=== PATIENT | female | born 1980 | race Caucasian/White ===

== ENCOUNTER 2019-11-04 07:38 | Emergency (ER) | payer OTHER ==
[2019-11-04 08:23] VITALS: BP 107/42; PULSE 71; TEMP 98.2; BMI 27.4
[2019-11-04] MEDS ORDERED: IBUPROFEN 400 MG TABLET (FP) PO ONE ×2 (08:40→08:44)
--- NOTE | 2019-11-04 08:55 | PDOC ---
History of Present Illness - General Chief Complaint: Sore Throat Stated Complaint: SORETHROAT SYMPTOMPS Time Seen by Provider: 11/04/19 08:27 History Source: Patient Exam Limitations: No Limitations Past History - Travel Traveled outside of the country in the last 30 days: No Close contact w/someone who was outside of country & ill: No - Past Medical History Allergies/Adverse Reactions: Allergies Allergy/AdvReac Type Severity Reaction Status Date / Time No Known Allergies Allergy Verified 11/04/19 08:18 Home Medications: Ambulatory Orders Benzonatate [Tessalon Pearls -] 100 mg PO TID #21 capsule 11/04/19 Cefdinir [Omnicef -] 300 mg PO BID #20 capsule 11/04/19 Ibuprofen 600 mg PO Q6H #30 tablet 11/04/19 - Immunization History Immunization Up to Date: No - Psycho Social/Smoking Cessation Hx Smoking History: Never smoked Have you smoked in the past 12 months: No Information on smoking cessation initiated: No Hx Alcohol Use: No Drug/Substance Use Hx: No Substance Use Type: None Review of Systems - Review of Systems Able to Perform ROS?: Yes Comments:: 11/04/19 08:55 CONSTITUTIONAL: Present: Fever, chills, body aches Absent: diaphoresis, generalized weakness, malaise, loss of appetite HEENT: Present: rhinorrhea, nasal congestion, throat pain, ear pain. Absent: difficulty swallowing, mouth swelling, eye pain, visual Changes CARDIOVASCULAR: Absent: chest pain, loss of consciousness, palpitations, irregular heart rate, peripheral edema RESPIRATORY: Present: Cough Absent: shortness of breath, dyspnea with exertion, orthopnea, wheezing, stridor, hemoptysis GASTROINTESTINAL: Absent: abdominal pain, abdominal distension, nausea, vomiting, diarrhea, constipation, melena, hematochezia SKIN: Absent: rash, itching, pallor NEUROLOGIC: Absent: headache, focal weakness or paresthesias, dizziness, unsteady gait, seizure, mental status changes, bladder or bowel incontinence Is the patient limited Malay proficient: No *Physical Exam - Vital Signs Last Vital Signs Temp Pulse Resp BP Pulse Ox 98.2 F 71 17 107/42 L 98 11/04/19 08:18 11/04/19 08:18 11/04/19 08:18 11/04/19 08:18 11/04/19 08:18 - Physical Exam 11/04/19 08:55 GENERAL: The patient is awake, alert, and fully oriented, in no acute distress. HEAD: Normal with no signs of trauma. EYES: Pupils equal, round and reactive to light, extraocular movements intact, sclera anicteric, conjunctiva clear. HEENT: No nasal congestion or rhinorrhea. No sinus Tenderness. Mucous membranes are moist. No tonsillar erythema, exudate or edema. Uvula is midline. No TM bulging , dullness or erythema. Shotty cervical lymphadenopathy present. EXTREMITIES: Normal range of motion, no edema. NEUROLOGICAL: Normal speech, normal gait. PSYCH: Normal mood, normal affect. SKIN: Warm, Dry, normal turgor, no rashes or lesions noted. Medical Decision Making - Medical Decision Making 11/04/19 08:56 The patient is a 39-year-old female who presents to the ER today for 1 week of cough, sore throat and earache. She states she has also had chills and subjective fevers. She notes that she was seen in urgent care 3 weeks ago for similar symptoms and placed on Augmentin. She states that after finishing the course of antibiotics she began with a sore throat again the next day. She also states that her left ear is painful and she noticed fluid coming out of the ear this morning. Questionable fluid level. She has not taken any medication for her symptoms. A/P: Sore throat, earache On exam throat is nonerythematous without exudate or edema. Left tympanic membrane appears dull and retracted. No obvious rupture of the TM. Rapid strep sent. Given pain within the left ear and retraction and dull TM will consider antibiotics Reevaluate 11/04/19 10:16 Rapid strep negative Given ear exam will treat with Cefdinir as she has recently had augmentin with in the last month Recommend ibuprofin as well Patient likely has an influenza given a week of flulike symptoms and fever. Outside of treatment window. Discharge home with primary care follow-up I discussed the physical exam findings, ancillary test results and final diagnoses with the patient. I answered all of the patient's questions. The patient was satisfied with the care received and felt comfortable with the discharge plan and treatment plan. The Patient agrees to follow up with the primary care physician/specialist within 24-72 hours. Return precautions were given. 11/04/19 10:19 Delayed DC d/t prolonged time for rapid strep results. Discharge - Discharge Information Problems reviewed: Yes Clinical Impression/Diagnosis: Ear pain, left, Cough Condition: Stable Disposition: HOME - Admission No - Follow up/Referral Referrals: Valente Manzano MD [Primary Care Provider] - - Patient Discharge Instructions Patient Printed Discharge Instructions: DI for Otitis Media (Middle Ear Infection)-Child Additional Instructions: You were evaluated for your cough, ear pain and sore throat today. Your rapid strep was negative at this time. However given your ear exam I have started antibiotics. Please pickup driver the Ceftin ear and take it twice a day for 10 days. You may take the Tessalon Perles every 8 hours as needed for cough. Please take the Motrin every 6 hours as needed for pain or fever. You most likely had the flu, you may be symptomatic for another 2 to 3 days given that you have already had symptoms for a week. Please follow-up with your primary care doctor this week. Return to the ER for any new or worsening symptoms. - Post Discharge Activity Work/Back to School Note: Back to Work
== END 2019-11-04 10:26 | disposition home or self-care (01) ==
LOC: JERFT 07:38 → JER 07:38 → JERFT 10:26
DX: H66.92 Otitis media, unspecified, left ear (principal)
CPT/HCPCS: 87070; 87880; 99283-25

== ENCOUNTER 2023-07-19 04:33 | Day surgery (SDC) | payer OTHER ==
[2023-07-16 12:19] VITALS: BMI 31.1
[2023-07-19] MEDS ORDERED: LIDOCAINE HCL/PF 2% SDV 5ML VIAL ONE (11:34)
[2023-07-19] MEDS ORDERED: FENTANYL CITRATE/PF 50 MCG/ML VIAL ONE ×3 (11:34→14:14)
[2023-07-19] MEDS ORDERED: PROPOFOL 20 ML ONE (11:34)
[2023-07-19] MEDS ORDERED: MIDAZOLAM HCL 2 MG/2 ML SINGLE DOSE VIAL ONE (11:36)
[2023-07-19] MEDS ORDERED: VASOPRESSIN 20 UNITS/ML VIAL IV ONE (11:39)
[2023-07-19] MEDS ORDERED: KETOROLAC TROMETHAMINE 30 MG/1 ML VIAL ONE (12:15)
[2023-07-19] MEDS ORDERED: ONDANSETRON 4 MG/2 ML VIAL ONE (12:15)
[2023-07-19] MEDS ORDERED: DEXAMETHASONE SOD PHOSPHATE 4 MG/1 ML VIAL ONE (12:15)
[2023-07-19] MEDS ORDERED: ceFAZolin SODIUM 1 GM VIAL IVPB ONE (12:18)
[2023-07-19] MEDS ORDERED: ceFAZolin SODIUM 1 GM VIAL ONE (12:20)
[2023-07-19] MEDS ORDERED: oxyCODONE HCL 5 MG TABLET PO PRN ×2 (13:00)
[2023-07-19] MEDS ORDERED: ONDANSETRON 4 MG/2 ML VIAL IVPUSH PRN (13:00)
[2023-07-19] MEDS ORDERED: PROMETHAZINE HCL 25 MG/1 ML VIAL IVPB PRN (13:00)
[2023-07-19] MEDS ORDERED: LACTATED RINGERS SOLUTION 1,000 ML IV SCH (13:00)
[2023-07-19] MEDS ORDERED: ACETAMINOPHEN 1000 MG/100 ML BAG IVPB ONE (13:01)
[2023-07-19 17:30] VITALS: RESP 20
[2023-07-19 17:56] VITALS: BP 107/68; PULSE 86; TEMP 97.8
== END 2023-07-19 18:00 | disposition home or self-care (01) ==
LOC: JASU-SURG 04:33
PROVIDERS: ATTEND Urology
PROC: 0TSD0ZZ Reposition Urethra, Open Approach (ICD-10-PCS; 2023-07-19)
PROC: 0TSD0ZZ Reposition Urethra, Open Approach (ICD-10-PCS; principal; 2023-07-19 12:30)
DX: N39.3 Stress incontinence (female) (male) (principal); N32.81 Overactive bladder
CPT/HCPCS: 57288; C1771; 81025; 88302-TC; 94760

== ENCOUNTER 2024-10-28 09:55 | Emergency (ER) | payer OTHER ==
[2024-10-28 10:04] VITALS: BP 113/62; PULSE 96; RESP 18; TEMP 98.9; BMI 31.1
[2024-10-28] MEDS ORDERED: METHOCARBAMOL 500 MG TABLET ONE (10:34)
[2024-10-28] MEDS ORDERED: ACETAMINOPHEN 500 MG TABLET (FP) ONE (10:35)
[2024-10-28] MEDS ORDERED: KETOROLAC TROMETHAMINE 30 MG/1 ML VIAL ONE (10:35)
[2024-10-28] MEDS: KETOROLAC TROMETHAMINE 30 MG/1 ML VIAL IM ONE (10:41)
[2024-10-28] MEDS: METHOCARBAMOL 500 MG TABLET PO ONE (10:41)
[2024-10-28] MEDS: ACETAMINOPHEN 500 MG TABLET (FP) PO ONE (10:41)
== END 2024-10-28 14:09 | disposition home or self-care (01) ==
LOC: JER 09:55
PROC: 3E0233Z Introduction of Anti-inflammatory into Muscle, Percutaneous Approach (ICD-10-PCS; principal; 2024-10-28)
DX: M54.6 Pain in thoracic spine (principal); M25.512 Pain in left shoulder; R07.89 Other chest pain; M25.522 Pain in left elbow; M25.532 Pain in left wrist; M79.642 Pain in left hand; V49.40XA Driver injured in collision with unspecified motor vehicles in traffic accident, initial encounter; Y92.410 Unspecified street and highway as the place of occurrence of the external cause
CPT/HCPCS: 71046-TC-FY; 73030-TC-LT-FY; 73110-TC-LT-FY; 73130-TC-LT-FY; 93005; 93010; 99284-25